=== PATIENT | male | born 1950 | race African-American/Black ===

== ENCOUNTER 2017-04-21 11:23 | Emergency (ER) | payer MEDICARE ==
[~2017-04-21 11:23] MED LIST: AGGRENOX PO; ALLOPURINOL300 MG PO; AMLODIPINE BESY10 MG PO; BACLOFEN10 MG PO; CLONIDINE PO; DARVOCET-N 1001 TAB PO; FAMOTIDINE PO; GABAPENTIN300 M2 PO; GLUCOVANCE 5/501 TA1 PO; HUMULIN 70100 UNIT/1 SQ; HYDROCODON-ACE1 EAC4 PO; LIPITOR20 MG PO; LISINOPRIL PO; LISINOPRIL5 MG PO; LOPRESSOR PO; METFORMIN HCL500 M1 PO; NAPROXEN PO; NORVASC PO; ZOCOR PO
== END 2017-04-21 16:00 | disposition expired ==
LOC: CED 11:23
DX: I46.9 Cardiac arrest, cause unspecified (principal); I10 Essential (primary) hypertension; E11.9 Type 2 diabetes mellitus without complications; Z79.899 Other long term (current) drug therapy; Z79.4 Long term (current) use of insulin
CPT/HCPCS: 92950; 99285